=== PATIENT | female | born 1930 | race Caucasian/White ===

== ENCOUNTER 2018-04-12 10:02 | Emergency (ER) | payer MEDICARE ==
[2018-04-12] MEDS ORDERED: ASPIRIN 81 MG CHEWABLE TABLET PO ONE (10:18)
--- NOTE | 2018-04-12 10:28 | Emergency Department Record ---
History of Present Illness - General Chief complaint: Weakness Stated complaint: FELL COUPLE DAYS Time Seen by Provider: 04/12/18 10:09 Source: Patient, RN notes reviewed Mode of Arrival: Wheelchair - History of Present Illness Initial comments: patient fell out of a chair today and EMS helped her get off the floor and daughter brought her to the ED. She has a older injury of her right big toe and her toenail is almost off and it is very ecchymotic especially around the toenail. Patient's feet are red . No trauma to head or neck and no pain moving arms and legs. patient states she has a chest pain which has been occurring for 4-5 months and is present today. Onset/Timin -: Week(s) Location: Generalized Consistency: Intermittent Improves with: None Worsens with: None Associated Symptoms: Denies other symptoms - Related Data Home Medications Medication Instructions Recorded Confirmed Last Taken Diclofenac Sodium [Voltaren] 100 gm TP TID 04/12/18 04/12/18 Unknown Gabapentin [Neurontin] 300 mg PO Q8H 04/12/18 04/12/18 Unknown Gabapentin [Neurontin] 600 mg PO QHS 04/12/18 04/12/18 Unknown [place]-3 Acid Ethyl Esters [Lovaza] 1 gm PO BID 04/12/18 04/12/18 Unknown Previous Rx's Medication Instructions Recorded Aspirin Chewable 325 mg PO DAILY #0 05/04/14 Metoprolol Tartrate [Lopressor] 50 mg PO BID #60 tablet 05/04/14 Cephalexin [Keflex] 500 mg PO QID #40 cap 04/12/18 Mupirocin Calcium [Bactroban] 1 applic TP BID #30 gm 04/12/18 Sulfamethoxazole/Trimethoprim 1 each PO BID #20 tablet 04/12/18 [Bactrim Ds Tablet] Allergies Allergy/AdvReac Type Severity Reaction Status Date / Time meperidine Allergy Unknown HYPERSENSIT Verified 04/12/18 10:29 [facility] Travel Screening - Travel/Exposure Within Last 30 Days Have you traveled within the last 30 days?: No Review of Systems Reviewed: No additional complaints except as noted below Constitutional: Reports: As per HPI. Denies: Chills, Fever, Malaise, Night sweats, Weakness, Weight change Eyes: Reports: As per HPI. Denies: Eye discharge, Eye pain, Photophobia, Vision change ENT: Reports: As per HPI. Denies: Congestion, Dental pain, Ear pain, Epistaxis , Hearing loss, Throat pain Respiratory: Reports: As per HPI. Denies: Cough, Dyspnea, Hemoptysis, Stridor, Wheezes Cardiovascular: Reports: As per HPI. Denies: Arrhythmia, Chest pain, Dyspnea on exertion, Edema, Murmurs, Orthopnea, Palpitations, Paroxysmal nocturnal dyspnea, Rheumatic Fever, Syncope Endocrine: Reports: As per HPI. Denies: Fatigue, Heat or cold intolerance, Polydipsia, Polyuria Gastrointestinal: Reports: As per HPI. Denies: Abdominal pain, Constipation, Diarrhea, Hematemesis, Hematochezia, Melena, Nausea, Vomiting Genitourinary: Reports: As per HPI. Denies: Abnormal menses, Discharge, Dyspareunia, Dysuria, Frequency, Hematuria, Incontinence, Retention, Urgency Musculoskeletal: Reports: As per HPI. Denies: Arthralgia, Back pain, Gout, Joint swelling, Myalgia, Neck pain Skin: Reports: As per HPI, Bruising (right great toe), Change in color, Other ( redness in both feet). Denies: Change in hair/nails, Lesions, Pruritus, Rash Neurological: Reports: As per HPI. Denies: Abnormal gait, Confusion, Headache, Numbness, Paresthesias, Seizure, Tingling, Tremors, Vertigo, Weakness Psychiatric: Reports: As per HPI. Denies: Anxiety, Auditory hallucinations, Depression, Homicidal thoughts, Suicidal thoughts, Visual hallucinations Hematological/Lymphatic: Reports: As per HPI. Denies: Anemia, Blood Clots, Easy bleeding, Easy bruising, Swollen glands Past Medical History - SOCIAL HISTORY Smoking Status: Never smoker - RESPIRATORY Hx Respiratory Disorders: No - CARDIOVASCULAR Hx Cardio Disorders: Yes Hx Hypertension: Yes Comment:: high cholesterol - NEURO Hx Neuro Disorders: Yes Hx Neuropathy: Yes (FINGERS) - GI Hx GI Disorders: Yes Hx Hepatitis/Jaundice: Yes (19 YEARS AGO) - Hx Genitourinary Disorders: Yes Comment:: STRESS INCONTINENCE - ENDOCRINE Hx Endocrine Disorders: Yes Hx Thyroid Disease: Yes - MUSCULOSKELETAL Hx Musculoskeletal Disorders: Yes Hx Arthritis: Yes Hx Osteoporosis: Yes ("SEVERE") Comment:: BACK PAIN - PSYCH Hx Psych Problems: Yes Hx Depression: Yes - HEMATOLOGY/ONCOLOGY Hx Hematology/Oncology Disorders: No Family Medical History Any Significant Family History?: Yes Hx Diabetes: Mother Physical Exam - General General Appearance: Alert, Oriented x3, Cooperative, No acute distress - Head Head exam: Normal inspection - Eye Eye exam: Normal appearance, PERRL Pupils: Normal accommodation - ENT ENT exam: Normal exam, Mucous membranes moist, Normal external ear exam, Normal orophraynx, TM's normal bilaterally Ear exam: Normal external inspection. negative: External canal tenderness Nasal Exam: Normal inspection. negative: Discharge, Sinus tenderness Mouth exam: Normal external inspection, Tongue normal Teeth exam: Normal inspection. negative: Dental caries Throat exam: Normal inspection. negative: Tonsillar erythema, Tonsillar exudate - Neck Neck exam: Normal inspection, Full ROM. negative: Tenderness - Respiratory Respiratory exam: Normal lung sounds bilaterally. negative: Respiratory distress - Cardiovascular Cardiovascular Exam: Regular rate, Normal rhythm, Normal heart sounds - GI/Abdominal GI/Abdominal exam: Soft, Normal bowel sounds. negative: Tenderness - Rectal Rectal exam: Other (decubitus in the crease of buttock about the size of a quarter.) - exam: Deferred - Extremities Extremities exam: Full ROM, Normal capillary refill, Tenderness (right great toe ecchymotic, both feet red), Other (pulses are present in feet but are faint. ) - Back Back exam: Reports: Normal inspection, Full ROM. Denies: Muscle spasm, Rash noted, Tenderness - Neurological Neurological exam: Alert, Normal gait, Oriented X3, Reflexes normal - Psychiatric Psychiatric exam: Normal affect, Normal mood - Skin Skin exam: Dry, Intact, Normal color, Warm Course Vital Signs 04/12/18 10:06 Temperature 99.0 F Pulse Rate 78 Respiratory 20 Rate Blood Pressure 142/82 Pulse Ox 94 L Medical Decision Making - Data Complexity MDM Data: Labs Ordered and/or Reviewed (d dimer elevated 0.92), X-Ray Ordered and/or Reviewed (CTA negative for a PE), EKG Ordered and/or Reviewed (NSR ,No acut changes and RBBB with PVc's) - Lab Data Result diagrams: 04/12/18 10:15 04/12/18 10:15 Disposition Clinical Impression: Cellulitis Qualifiers: Site of cellulitis: extremity Site of cellulitis of extremity: lower extremity Laterality: right Qualified Code(s): L03.115 - Cellulitis of right lower limb Decubitus skin ulcer Qualifiers: Pressure injury location: buttock Pressure injury stage: stage 2 Laterality: unspecified laterality Qualified Code(s): L89.302 - Pressure ulcer of unspecified buttock, stage 2 Condition: (1) Good Instructions: Cellulitis (ED), How to Prevent Pressure Ulcers (ED) Additional Instructions: wash buttock daily and apply bactoban ointment twice a day elevate legs follow up with Dr. Garcia on tuesday start bactrim Ds twice a day keflex four times a day Prescriptions: Cephalexin [Keflex] 500 mg PO QID #40 cap Mupirocin Calcium [Bactroban] 1 applic TP BID #30 gm Sulfamethoxazole/Trimethoprim [Bactrim Ds Tablet] 1 each PO BID #20 tablet Forms: Patient Portal Access Time of Disposition: 13:03 Quality - Quality Measures Quality Measures: N/A - Blood Pressure Screening Does Patient Have Any of the Following: No, Active Dx of HTN Blood Pressure Classification: Pre-Hypertensive BP Reading Systolic Measurement: 142 Diastolic Measurement: 82 Screening for High Blood Pressure: Patient Exclusion, Hx of HTN [G9744]
[2018-04-12 10:34] LABS: BASO % 0.5 % (0-6); EOS % 4.3 % (0-6); GRAN % 61.6 % (47-80); HEMATOCRIT 40.2 % (35.0-47.0); HEMOGLOBIN 12.9 gm/dl (11.6-16.0); LYMPH % 23.7 % (16-45); MEAN CELL VOLUME 98.3 fl (81-97); MEAN CORPUSCULAR HEMOGLOBIN 31.5 pg (27-33); MEAN CORPUSCULAR HGB CONC 32.1 g/dl (32-36); MEAN PLATELET VOLUME 9.7 fl (7.4-10.4); MONO % 9.9 % (0-9); PLATELET COUNT 265 K/uL (130-400); RED BLOOD COUNT 4.09 M/uL (3.80-5.40); RED CELL DISTRIBUTION WIDTH 12.3 % (11.5-14.5); WHITE BLOOD COUNT W/O DIFF 7.5 K/uL (4.2-12.2)
[2018-04-12 10:39] LABS: BLOOD UREA NITROGEN 33 mg/dL (8-23); CREATININE 0.6 mg/dL (0.5-0.9); EST GLOMERULAR FILTRATION RATE > 60 mL/min
[2018-04-12 10:42] LABS: GLUCOSE,RANDOM 126 mg/dL (74-109)
[2018-04-12 10:43] LABS: PARTIAL THROMBOPLASTIN TIME 30.1 SECONDS (24.5-39.1)
--- NOTE | 2018-04-14 10:46 | CT ANGIOGRAM REPORT ---
EXAM: CT ANGIOGRAM OF THE CHEST HISTORY: FALL, RIGHT LOWER RIB PAIN, ELEVATED D-DIMER. TECHNIQUE: CT pulmonary angiogram of the chest was obtained. Approximately 70 ml of Omnipaque 350 were administered intravenously. Maximum intensity projection images were reconstructed on a separate workstation. Comparison: Chest radiograph 05/02/14. FINDINGS: Adequate opacification of the pulmonary arterial system to the segmental level. No filling defects are identified to suggest pulmonary embolism. The main pulmonary artery appears nondilated. The thoracic aorta is nondilated and mildly calcified. Coarse coronary artery calcifications are noted. No significant pericardial fluid collection. Multiple slightly prominent mediastinal and bilateral hilar lymph nodes. The largest discreet lymph node within the aortopulmonary window measures up to 12 mm in short axis. No focal pulmonary consolidation. No pleural effusion or pneumothorax. Mild bilateral lower lobe subsegmental atelectasis. The central airways appear patent. Small hiatal hernia. Right renal cortical cyst. No definite acute displaced fractures are identified. 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 Diffuse degenerative changes of the thoracic spine and visualized cervical and lumbar spine, incompletely assessed. IMPRESSION: 1. NO EVIDENCE OF ACUTE PULMONARY EMBOLISM OR OTHER ACUTE INTRATHORACIC PROCESS. 2. BORDERLINE ENLARGED MEDIASTINAL AND HILAR LYMPH NODES, NONSPECIFIC, POSSIBLY REACTIVE. 3. NO DEFINITE ACUTE FRACTURE DETECTED. ADVANCED DEGENERATIVE CHANGES OF THE SPINE AND BILATERAL SHOULDERS. JOB NUMBER: [id number] [facility]
--- NOTE | 2018-04-14 13:45 | RADIOLOGY REPORT ---
EXAM: RIGHT FOOT, THREE VIEWS HISTORY: FALL, RIGHT FOOT PAIN. TECHNIQUE: Three views of the right foot were obtained. Comparison: No relevant comparison studies. FINDINGS: No definite acute fracture or dislocation identified. 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 Marked lateral deviation of the proximal phalanges at the level of the metatarsal phalangeal joints, with possible underlying osteoarthrosis. Prominent calcaneal Achilles insertional end plantar enthesophytes. IMPRESSION: 1. NO DEFINITE ACUTE OSSEOUS FINDINGS. 2. CHRONIC DEGENERATIVE CHANGES OF THE ANKLE AND FOOT, ABOVE. JOB NUMBER: [id number] [facility]
== END 2018-04-12 13:23 | disposition home or self-care (01) ==
LOC: ER 10:02
DX: S90.111A Contusion of right great toe without damage to nail, initial encounter (principal); L03.115 Cellulitis of right lower limb; L03.031 Cellulitis of right toe; L89.322 Pressure ulcer of left buttock, stage 2; L89.312 Pressure ulcer of right buttock, stage 2; R07.89 Other chest pain; R79.89 Other specified abnormal findings of blood chemistry; M47.894 Other spondylosis, thoracic region; Z91.81 History of falling; W07.XXXA Fall from chair, initial encounter; I10 Essential (primary) hypertension
CPT/HCPCS: 99284 ×2; 85025; 85730; 80048; 84484; 85379; 73630; 71275; 93005; 93010; Q9967

== ENCOUNTER 2018-04-29 15:08 | Emergency (ER) | payer MEDICARE ==
--- NOTE | 2018-04-29 15:25 | Emergency Department Record ---
History of Present Illness - General Chief complaint: Lower Extremity Pain Stated complaint: PAIN IN LOWER LEG Time Seen by Provider: 04/29/18 15:09 Source: Patient, Family Mode of Arrival: Wheelchair Limitations: No limitations - History of Present Illness Initial comments: 87 yo female presents with bilateral calf pain for two weeks. The right calf today became more painful than that left. She notes a sharp pain in the posterior area. She has had anterior spivey pain as well. She has had swelling that has fluctuated. She has been seen recently by the PCP locally for a right toe infection. That area is improving. The calf pain today concerned them that blood clots could be possible given the location of the pain, her swelling , and less active. No history of prior DVT. MD Complaint: Other (Bilateral calf pain, right greater than left) Onset/Timin -: Week(s) Location: Left, Right History of Same: Yes -: Yes Arthralgia, Yes Myalgia Radiation: Proximal, Distal Severity scale (1-10): 4 Quality: Aching Consistency: Constant Improves with: Nothing Worsens with: Walking, Weight bearing Associated Symptoms: Denies other symptoms - Related Data Previous Rx's Medication Instructions Recorded Aspirin Chewable 325 mg PO DAILY #0 05/04/14 Metoprolol Tartrate [Lopressor] 50 mg PO BID #60 tablet 05/04/14 Cephalexin [Keflex] 500 mg PO QID #40 cap 04/12/18 Mupirocin Calcium [Bactroban] 1 applic TP BID #30 gm 04/12/18 Allergies Allergy/AdvReac Type Severity Reaction Status Date / Time meperidine Allergy Unknown HYPERSENSIT Verified 04/29/18 15:15 [facility] Travel Screening - Travel/Exposure Within Last 30 Days Have you traveled within the last 30 days?: No Review of Systems Constitutional: Denies: Chills, Fever, Weakness Eyes: Denies: Eye discharge ENT: Denies: Congestion, Throat pain Respiratory: Denies: Cough, Dyspnea Cardiovascular: Denies: Chest pain, Palpitations, Syncope Endocrine: Denies: Fatigue, Polydipsia, Polyuria Gastrointestinal: Denies: Abdominal pain, Diarrhea, Nausea, Vomiting Genitourinary: Denies: Hematuria Musculoskeletal: Reports: Arthralgia, Joint swelling, Myalgia Skin: Denies: Bruising, Change in color, Rash Neurological: Denies: Headache Psychiatric: Denies: Anxiety Hematological/Lymphatic: Denies: Blood Clots, Easy bleeding, Easy bruising Past Medical History - SOCIAL HISTORY Smoking Status: Never smoker Alcohol Use: None Drug Use: None - RESPIRATORY Hx Respiratory Disorders: No - CARDIOVASCULAR Hx Cardio Disorders: Yes Hx Hypertension: Yes Comment:: high cholesterol - NEURO Hx Neuro Disorders: Yes Hx Neuropathy: Yes (FINGERS) - GI Hx GI Disorders: Yes Hx Hepatitis/Jaundice: Yes (19 YEARS AGO) - Hx Genitourinary Disorders: Yes Comment:: STRESS INCONTINENCE - ENDOCRINE Hx Endocrine Disorders: Yes Hx Thyroid Disease: Yes - MUSCULOSKELETAL Hx Musculoskeletal Disorders: Yes Hx Arthritis: Yes Hx Osteoporosis: Yes ("SEVERE") Comment:: BACK PAIN - PSYCH Hx Psych Problems: Yes Hx Depression: Yes - HEMATOLOGY/ONCOLOGY Hx Hematology/Oncology Disorders: No Family Medical History Any Significant Family History?: Yes Hx Diabetes: Mother Physical Exam - General General Appearance: Alert, Oriented x3, Cooperative, No acute distress Limitations: No limitations - Head Head exam: Normal inspection - Eye Eye exam: Normal appearance. negative: Conjunctival injection - ENT ENT exam: Normal exam Ear exam: Normal external inspection Nasal Exam: Normal inspection Mouth exam: Normal external inspection - Neck Neck exam: Normal inspection - Respiratory Respiratory exam: Normal lung sounds bilaterally. negative: Respiratory distress - Cardiovascular Cardiovascular Exam: Regular rate, Normal rhythm, Normal heart sounds Peripheral Pulses: 2+: Dorsalis Pedis (R), Dorsalis Pedis (L) - GI/Abdominal GI/Abdominal exam: Soft. negative: Tenderness - Rectal Rectal exam: Deferred - exam: Deferred - Extremities Extremities exam: Calf tenderness, Normal capillary refill, Pedal edema (The patient has bilateral feet erythema, avulsed right great toe, no pus. Intact DP pulses, bilateral calf tenderness. RIGHT measured a max of 46cm the LEFT measured a max of 49.5cm.), Tenderness, Other. negative: Normal inspection - Back Back exam: Reports: Full ROM - Neurological Neurological exam: Alert, Oriented X3 - Psychiatric Psychiatric exam: Normal affect, Normal mood - Skin Skin exam: Erythema Course Vital Signs 04/29/18 15:15 Temperature 97.8 F Pulse Rate 65 Respiratory 20 Rate Blood Pressure 114/65 Pulse Ox 98 - Reevaluation(s) Reevaluation #1: I discussed with the patient that DVT was possible given her recent treatment, less mobile, pain, swelling and calf size differences. I explained [facility] does not have US testing on the weekend I recommend transfer for dopplers as DVT can be a serious medical issue She and her daughter agreed. I SW the [facility] ED for transfer for evaluation for dopplers. Dr Jasso 04/29/18 15:27 04/29/18 15:34 She is asymptomatic with normal vitals. She is stable for private car transport Disposition Disposition: Transfer Clinical Impression: Bilateral calf pain Disposition: Acute Care Hospital Transfer Transfer To: [facility] Reason For Transfer: Venous Dopplers not available Accepting Physician: Dr Jose Jasso Time Discussed w/Accepting Physician: 15:34 Condition: (1) Good Forms: Patient Portal Access Time of Disposition: 15:34 Quality - Quality Measures Quality Measures: N/A - Blood Pressure Screening Does Patient Have Any of the Following: No Blood Pressure Classification: Normal BP Reading Systolic Measurement: 114 Diastolic Measurement: 65 Screening for High Blood Pressure: < Normal BP, F/U Not Required > [G8783]
== END 2018-04-29 15:48 | disposition short-term general hospital (02) ==
LOC: ER 15:08
DX: M79.662 Pain in left lower leg (principal); M79.661 Pain in right lower leg; I10 Essential (primary) hypertension
CPT/HCPCS: 99283

== ENCOUNTER 2018-05-13 11:06 | Inpatient (IN) | payer MEDICARE ==
--- NOTE | 2018-05-13 11:28 | Emergency Department Record ---
History of Present Illness - General Chief Complaint: Fall Injury Stated Complaint: FALLS Source: Patient, Family Mode of Arrival: Wheelchair Limitations: No limitations - History of Present Illness Initial Comments: 87 yo female presents with weakness and multiple falls. She has fallen at least 5 times in the last month. The local EMS has had to come to the home to get her up each time per the daughter. The patient states she thinks her legs give out. No head injury. She denies syncope. She feels tired and weak with some new swelling in her legs with redness. No nausea, vomiting or diarrhea. She does live alone with a life alert. Her daughter reports she is investigating assisted living but she has not made any firm plans yet. Dr Garcia is her PCP. MD Complaint: Fall -: Week(s) Fall From: Standing When Fall Occurred: Recurrent falls Fall Witnessed: No Place Fall Occurred: Home Loss of Consciousness: None Prolonged Down Time?: Yes Symptoms Prior to Fall: None Location: Other Severity: Moderate Quality: Aching Associated Symptoms: Denies - [place] Coma Scale Eye Response: (4) Open spontaneously Motor Response: (6) Obeys commands Verbal Response: (5) Oriented [place] Total: 15 - Related Data Previous Rx's Medication Instructions Recorded Aspirin Chewable 325 mg PO DAILY #0 05/04/14 Metoprolol Tartrate [Lopressor] 50 mg PO BID #60 tablet 05/04/14 Allergies Allergy/AdvReac Type Severity Reaction Status Date / Time meperidine Allergy Unknown HYPERSENSIT Verified 05/13/18 11:15 IVITY Review of Systems Constitutional: Reports: Malaise, Weakness. Denies: Chills, Fever Eyes: Denies: Eye discharge ENT: Denies: Congestion, Throat pain Respiratory: Denies: Cough, Dyspnea, Hemoptysis, Stridor, Wheezes Cardiovascular: Reports: Edema. Denies: Chest pain, Palpitations, Syncope Endocrine: Reports: Fatigue Gastrointestinal: Denies: Abdominal pain, Diarrhea, Nausea, Vomiting Genitourinary: Denies: Dysuria, Urgency Musculoskeletal: Reports: Arthralgia, Back pain. Denies: Myalgia Skin: Reports: Change in color, Rash. Denies: Bruising Neurological: Reports: Abnormal gait (Unable due to weakness), Weakness. Denies : Confusion, Headache, Numbness, Tingling, Tremors, Vertigo Psychiatric: Denies: Anxiety Hematological/Lymphatic: Denies: Easy bleeding, Easy bruising Past Medical History - SOCIAL HISTORY Smoking Status: Never smoker Drug Use: None - RESPIRATORY Hx Respiratory Disorders: No - CARDIOVASCULAR Hx Cardio Disorders: Yes Hx Hypertension: Yes Comment:: high cholesterol - NEURO Hx Neuro Disorders: Yes Hx Neuropathy: Yes (FINGERS) - GI Hx GI Disorders: Yes Hx Hepatitis/Jaundice: Yes (19 YEARS AGO) - Hx Genitourinary Disorders: Yes Comment:: STRESS INCONTINENCE - ENDOCRINE Hx Endocrine Disorders: Yes Hx Thyroid Disease: Yes - MUSCULOSKELETAL Hx Musculoskeletal Disorders: Yes Hx Arthritis: Yes Hx Osteoporosis: Yes ("SEVERE") Comment:: BACK PAIN - PSYCH Hx Psych Problems: Yes Hx Depression: Yes - HEMATOLOGY/ONCOLOGY Hx Hematology/Oncology Disorders: No Family Medical History Hx Diabetes: Mother Physical Exam - General General Appearance: Alert, Oriented x3, Cooperative, No acute distress Limitations: No limitations - Head Head exam: Atraumatic, Normocephalic, Normal inspection - Eye Eye exam: Normal appearance, PERRL. negative: Conjunctival injection, Scleral icterus - ENT ENT exam: Normal exam, Mucous membranes moist, Normal orophraynx Ear exam: Normal external inspection Nasal Exam: Normal inspection Mouth exam: Normal external inspection - Neck Neck exam: Normal inspection, Full ROM. negative: Tenderness - Respiratory Respiratory exam: Normal lung sounds bilaterally. negative: Respiratory distress, Rhonchi, Stridor, Wheezes - Cardiovascular Cardiovascular Exam: Regular rate, Normal rhythm, Normal heart sounds Peripheral Pulses: 2+: Radial (R), Radial (L) - GI/Abdominal GI/Abdominal exam: Soft. negative: Guarding, Tenderness - Rectal Rectal exam: Deferred - exam: Deferred - Extremities Extremities exam: Normal capillary refill, Pedal edema (erythema bilateral lower legs), Tenderness. negative: Normal inspection - Back Back exam: Reports: Paraspinal tenderness, Tenderness, Vertebral tenderness ( chronic). Denies: Normal inspection (Bruising to the right lower ribs) - Neurological Neurological exam: Abnormal gait, Alert, Oriented X3. negative: Altered, Motor sensory deficit - Psychiatric Psychiatric exam: Normal affect, Normal mood - Skin Skin exam: Erythema Course - Reevaluation(s) Reevaluation #1: EKG EKG #1: 1124 Rate: 65 Rhythm: sinus with PVC Buckley: leftward Intervals: RBBB ST segments: Nonspecific changes consistent with RBBB Prior: 8/1/18 no changes 05/13/18 11:32 05/13/18 13:16 The HCT was reviewed. Remote prior stroke. NO acute findings The CXR was negative for acute process The CBC and CMP were reviewed. No significant major changes The Troponin is negative The patient requires two person lift for transferring. She is a significant fall risk. Admit for cellutitis,falls, deconditioning. Ariane Wellington was contacted for admission to the Family Medicine Service. 05/13/18 13:58 The UA is negative Medical Decision Making - Lab Data Result diagrams: 05/13/18 11:30 05/13/18 11:30 Disposition Clinical Impression: Falls frequently, Physical deconditioning, Cellulitis, Edema extremities Quality - Quality Measures Quality Measures: N/A - Blood Pressure Screening Does Patient Have Any of the Following: Active Dx of HTN Blood Pressure Classification: Pre-Hypertensive BP Reading Systolic Measurement: 137 Diastolic Measurement: 60 Screening for High Blood Pressure: Patient Exclusion, Hx of HTN [G9744]
[2018-05-13 11:43] LABS: BASO % 0.8 % (0-6); EOS % 5.8 % (0-6); GRAN % 56.5 % (47-80); HEMATOCRIT 39.7 % (35.0-47.0); HEMOGLOBIN 12.7 gm/dl (11.6-16.0); LYMPH % 25.6 % (16-45); MEAN CELL VOLUME 98.3 fl (81-97); MEAN CORPUSCULAR HEMOGLOBIN 31.4 pg (27-33); MEAN PLATELET VOLUME 9.5 fl (7.4-10.4); MONO % 11.3 % (0-9); PLATELET COUNT 254 K/uL (130-400); RED BLOOD COUNT 4.04 M/uL (3.80-5.40); RED CELL DISTRIBUTION WIDTH 12.6 % (11.5-14.5); WHITE BLOOD COUNT W/O DIFF 6.4 K/uL (4.2-12.2)
[2018-05-13 11:49] LABS: INR 1.1; PARTIAL THROMBOPLASTIN TIME 30.9 SECONDS (24.5-39.1); PROTHROMBIN TIME (PATIENT) 10.7 SECONDS (9.5-12.1)
[2018-05-13 11:51] LABS: BLOOD UREA NITROGEN 31 mg/dL (8-23); CREATININE 0.8 mg/dL (0.5-0.9); EST GLOMERULAR FILTRATION RATE > 60 mL/min
[2018-05-13 11:52] LABS: TOTAL PROTEIN 6.9 g/dL (6.6-8.7)
[2018-05-13 11:54] LABS: GLUCOSE,RANDOM 112 mg/dL (74-109)
[2018-05-13 11:56] LABS: ALT/SGPT 17 U/L (<33)
[2018-05-13 11:57] LABS: ALB/GLOB RATIO 1.7 (1.1-1.8); ALBUMIN 4.3 g/dL (4.0-5.0); ALKALINE PHOSPHATASE 63 U/L (35-104); AST/SGOT 19 U/L (10.0-35.0)
[2018-05-13 12:07] LABS: THYROID STIMULATING HORMONE 1.41 uIU/mL (0.270-4.20)
[2018-05-13] MEDS ORDERED: CEFAZOLIN 1 Gram 1 GM/50 ML BAG IVPB ONE (13:21)
[2018-05-13 13:34] LABS: URINE APPEARANCE CLEAR; URINE BILIRUBIN NEGATIVE (NEGATIVE); URINE BLOOD NEGATIVE (NEGATIVE); URINE COLOR YELLOW; URINE GLUCOSE (UA) NEGATIVE (NEGATIVE); URINE KETONE NEGATIVE (NEGATIVE); URINE LEUKOCYTE ESTERASE NEGATIVE (NEGATIVE); URINE NITRITE NEGATIVE (NEGATIVE); URINE PROTEIN NEGATIVE (NEGATIVE); URINE UROBILINOGEN 0.2 E.U./dL (0.20 - 1.00)
[2018-05-13] MEDS: CEFAZOLIN IVPB SCH ×2 (15:22→23:44)
[2018-05-13] MEDS: SODIUM CHLORIDE 0.9% IVPB SCH ×2 (15:22→23:44)
[2018-05-13] MEDS ORDERED: ZINC OXIDE TOP PRN (16:00)
[2018-05-13] MEDS ORDERED: MENTHOL TOP PRN (16:00)
[2018-05-13] MEDS: GABAPENTIN 300 MG CAPSULE PO SCH ×3 (16:03→22:04)
[2018-05-13] MEDS: METOPROLOL TART 50 MG TABLET PO SCH (21:59)
[2018-05-13] MEDS: ROPINIROLE HCL 1 MG TABLET PO SCH (22:00)
[2018-05-14] MEDS: CEFAZOLIN 1G VIAL IVPB SCH ×3 (00:16→15:03)
[2018-05-14] MEDS: GABAPENTIN 300 MG CAPSULE PO SCH ×4 (06:14→21:40)
[2018-05-14] MEDS: LEVOTHYROXINE SODIUM 175 MCG TABLET PO SCH (06:14)
[2018-05-14 06:26] LABS: BASO % 0.6 % (0-6); EOS % 2.8 % (0-6); GRAN % 65.4 % (47-80); HEMATOCRIT 37.3 % (35.0-47.0); HEMOGLOBIN 11.6 gm/dl (11.6-16.0); LYMPH % 19.5 % (16-45); MEAN CORPUSCULAR HGB CONC 31.1 g/dl (32-36); MEAN PLATELET VOLUME 9.9 fl (7.4-10.4); MONO % 11.7 % (0-9); PLATELET COUNT 229 K/uL (130-400); RED BLOOD COUNT 3.73 M/uL (3.80-5.40); RED CELL DISTRIBUTION WIDTH 12.8 % (11.5-14.5); WHITE BLOOD COUNT W/O DIFF 7.1 K/uL (4.2-12.2)
[2018-05-14 06:45] LABS: ALB/GLOB RATIO 1.7 (1.1-1.8); ALBUMIN 3.8 g/dL (4.0-5.0); ALKALINE PHOSPHATASE 54 U/L (35-104); ALT/SGPT 11 U/L (<33); AST/SGOT 18 U/L (10.0-35.0); BLOOD UREA NITROGEN 27 mg/dL (8-23); CREATININE 0.6 mg/dL (0.5-0.9); EST GLOMERULAR FILTRATION RATE > 60 mL/min; GLUCOSE,RANDOM 125 mg/dL (74-109); TOTAL PROTEIN 6.1 g/dL (6.6-8.7)
[2018-05-14] MEDS: ASPIRIN 81 MG CHEWABLE TABLET PO SCH (09:59)
[2018-05-14] MEDS: ENOXAPARIN 40 MG/0.4 ML SYR SQ SCH (09:59)
[2018-05-14] MEDS: METOPROLOL TART 50 MG TABLET PO SCH ×2 (09:59→21:40)
[2018-05-14] MEDS: ACETAMINOPHEN 325 MG TAB PO PRN ×2 (10:26→16:22)
[2018-05-14] MEDS: ROPINIROLE HCL 1 MG TABLET PO SCH (21:40)
[2018-05-15] MEDS: CEFAZOLIN 1G VIAL IVPB SCH ×4 (00:29→23:42)
[2018-05-15] MEDS: LEVOTHYROXINE SODIUM 175 MCG TABLET PO SCH (07:03)
[2018-05-15] MEDS: GABAPENTIN 300 MG CAPSULE PO SCH ×4 (07:03→21:27)
[2018-05-15] MEDS: ENOXAPARIN 40 MG/0.4 ML SYR SQ SCH (09:38)
[2018-05-15] MEDS: ASPIRIN 81 MG CHEWABLE TABLET PO SCH (09:39)
[2018-05-15] MEDS: METOPROLOL TART 50 MG TABLET PO SCH ×2 (09:41→21:27)
[2018-05-15] MEDS: ACETAMINOPHEN 325 MG TAB PO PRN ×2 (12:12→21:24)
[2018-05-15] MEDS: ROPINIROLE HCL 1 MG TABLET PO SCH (21:27)
[2018-05-16] MEDS: LEVOTHYROXINE SODIUM 175 MCG TABLET PO SCH (06:42)
[2018-05-16] MEDS: GABAPENTIN 300 MG CAPSULE PO SCH ×4 (06:42→22:48)
[2018-05-16] MEDS: ACETAMINOPHEN 325 MG TAB PO PRN ×2 (06:43→20:01)
--- NOTE | 2018-05-16 07:11 | CT SCAN REPORT ---
EXAM: CT SCAN OF THE BRAIN WITHOUT CONTRAST HISTORY: MULTIPLE RECENT FALLS. TECHNIQUE: Standard CT imaging of the brain was performed in the axial plane without contrast. Additional coronal and sagittal reformatted images were also performed. Comparison: None. Encounter: Initial. FINDINGS: There is moderate generalized atrophy. The ventricles and subarachnoid spaces are otherwise normal. Moderate chronic small vessel ischemic changes are present within the periventricular and subcortical white matter of both cerebral hemispheres. A small old infarct is present within the posterior left frontal lobe superiorly. There is no mass, mass effect, intracranial hemorrhage, visible acute infarct, or abnormal extraaxial fluid. The skull is intact. The orbits, sinuses, and mastoids are normal. IMPRESSION: 1. NO ACUTE INTRACRANIAL ABNORMALITY OR SKULL FRACTURE. 2. MODERATE ATROPHY AND CHRONIC SMALL VESSEL ISCHEMIC CHANGES. 3. 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 J[facility]BER: [id number] [facility]
--- NOTE | 2018-05-16 07:14 | RADIOLOGY REPORT ---
EXAM: CHEST, TWO VIEWS HISTORY: MULTIPLE RECENT FALLS. TECHNIQUE: AP and lateral upright views of the chest were obtained. Comparison: 05/02/14. FINDINGS: There are low lung volumes. The heart is upper normal in size. The mediastinum and pulmonary vasculature are normal. There are no visible acute infiltrates or effusions. There is no pneumothorax. Degenerative changes are present within the spine and shoulders. No acute osseous abnormality is identified. IMPRESSION: 1. LOW LUNG VOLUMES. 2. NO ACUTE CHEST PATHOLOGY IDENTIFIED. JOB NUMBER: [id number] [facility]
--- NOTE | 2018-05-16 07:15 | History and Physical Report ---
DATE OF SERVICE: 05/14/2018. CHIEF COMPLAINT/HISTORY OF CHIEF COMPLAINT: Bilateral redness of her legs, frequent falls, weakness. She has had 5 falls in the last month. She came to the emergency department. Evaluated by Dr. Evans. Admitted to the hospital for cellulitis, edema of her lower extremities, frequent falls, physical deconditioning. She was initially put in under Ariane, the nurse practitioner, and I saw her on 05/14/2018. She states her legs were sore and red bilaterally. She had fallen down. She was brought in by her daughter to the emergency department, and her legs are starting to feel a little better, according to the patient. She said the left leg was more painful than the right leg. MEDICAL HISTORY: She has hypertension, hypercholesterolemia, neuropathy of the legs and feet and hands; 19 years ago she had hepatitis. She is incontinent of urine. 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 CURRENT MEDICATIONS: On admission: 1. Tramadol 100 mg t.i.d. 2. Requip 1 mg at h.s. 3. Metoprolol tartrate 50 mg b.i.d. 4. Losartan 50 mg daily. 5. Levothyroxine 175 mcg q.daily. 6. Gabapentin 600 mg at h.s., 300 mg q.8 hours. 7. Voltaren 100 mg t.i.d. 8. Aspirin 325 daily. 9. Tylenol 325 p.r.n. ALLERGIES: DEMEROL. SOCIAL HISTORY: She denies any alcohol or drug use. FAMILY HISTORY: Unremarkable. SYSTEMS REVIEW: HEENT: No upper respiratory infections, symptoms of cough, cold, or congestion. CARDIOVASCULAR: No chest pain, palpitation, arrhythmias. RESPIRATORY: No cough, cold, or congestion. GASTROINTESTINAL: No nausea, vomiting, diarrhea, black stools, or bloody stools. GENITOURINARY: No dysuria, hematuria, frequency, or burning on urination. MUSCULOSKELETAL: She has pain in her low back and her joints. She also has pain in her legs that are red and slightly swollen and edematous, probably 1+-2+ edema. The left leg is more painful than the right leg. NEUROLOGIC: No CVA, paralysis, or paresthesias. ENDOCRINE: She has hypothyroidism. No diabetes. INTEGUMENTARY: No rash, ulcer, change in moles, or yellow skin. GYNECOLOGIC: She denies any lumps in her breasts or any abnormal vaginal bleeding. PHYSICAL EXAMINATION: VITAL SIGNS: Height is 5 foot 2. Weight is 212 pounds. Temperature is 99.3. Pulse is 86. Blood pressure 167/70. Respiratory rate is 18. Pulse ox 98% on room air. HEENT: Pupils equal, round, and react to light and accommodation. Extraocular muscles intact. Throat is clear. Nose is clear. Tympanic membranes are norris. NECK: Supple. No jugular venous distention or elevated hepatojugular reflux. No carotid bruits. Thyroid smooth. RESPIRATORY: Clear to auscultation and percussion. CARDIOVASCULAR: Regular rate and rhythm without murmurs, clicks, rubs, or gallops. ABDOMEN: Soft, nontender. No hepatosplenomegaly. No masses. No tenderness. Bowel sounds are active. No bruits. EXTREMITIES: No pitting edema. No cyanosis. No clubbing. Full range of motion. Peripheral pulses good. BREASTS: Deferred. GYNECOLOGIC: Exam deferred. RECTAL: Exam deferred. NEUROLOGIC: Cranial nerves II-XII intact. No gross defects. Deep tendon reflexes equal bilaterally. Babinskis negative. She is very weak when she gets out of bed, which is kind of her typical. Patient walking with a walker with 1 person holding her arm. MENTAL STATUS: Alert and oriented x3. IMPRESSION: 1. Cellulitis of both legs. 2. Weakness. 3. Frequent falls. 4. Degenerative joint disease of her low back and arthritis of her low back. 5. History of hypertension. 6. History of hypothyroidism. 7. History of frequent falls. PLAN: IV cephalexin 1 g q.6 hours. Physical therapy to evaluate and help with deconditioning. Inpatient certification. Admit to inpatient care based on the medical assessment and consideration of patient risk factors, age, comorbidities, and patient's presenting symptoms and acuity. I expect this patient will remain in the hospital greater than or equal to 2 midnights and that the services needed warrant inpatient care because of cellulitis of the legs. Estimated length of stay 3 days. Patient may reasonably be expected to be discharged or transferred to a hospital within 96 hours after admission to [facility]. I certify that my determination is in accordance with my understanding of Medicare requirements for reasonable and necessary inpatient services. ALEXANDRA
[2018-05-16] MEDS: CEFAZOLIN 1G VIAL IVPB SCH (08:22)
--- NOTE | 2018-05-16 10:19 | Rehab Evaluation ---
Patient Information - Patient Information Diagnosis: Cellulitis, weakness, falls, deconditioning Ordered Treatment: PT Evaluate and Treat Status: Initial Evaluation Surgery: No Past Medical/Surgical Hx: PAST MEDICAL/SURGICAL HISTORY Past Surgical History Total right knee 05/02/14 PMH - Respiratory Hx Respiratory Disorders No PMH - Cardiovascular Hx Cardiovascular Disorders Yes Hx Hypertension Yes Comment: high cholesterol PMH - Neuro Hx Neurological Disorders Yes Hx Neuropathy Yes: FINGERS PMH - GI Hx Gastrointestinal Disorders Yes Hx Hepatitis/Jaundice Yes: 19 YEARS AGO Comment: CONSTIPATION PMH - Hx Genitourinary Disorders Yes Comment: STRESS INCONTINENCE PMH - Endocrine Hx Endocrine Disorders Yes Hx Diabetes No Hx Thyroid Disease Yes PMH - Musculoskeletal Hx Musculoskeletal Disorders Yes Hx Arthritis Yes Hx Osteoporosis Yes: "SEVERE" Comment: BACK PAIN PMH - Psych Hx Psychiatric Problems Yes Hx Depression Yes PMH - Hematology/Oncology Hx Hematology/Oncology No Disorders Premorbid Status: Detail (Patient was currently IND with all mobility and ADL' s. Although she does report multiple falls recently.) Social History: Detail (Patient lives alone in a mobile home. She has a ramp to enter the home and no steps throughout. She has a tub with a shower bench and an elevated toilet. She currently uses a rollator at home and performs most ADL' s herself. She has help with cleaning and does not drive.) Precautions: [place], Fall - Time With Patient Total Time Spent With Patient (Min): 30 Treatment Procedures: Detail (Initial evaluation, gait training.) Subjective Information - Subjective Information Per Patient (Patient had no complaints of pain. Patient reports multiple falls in the last few months. Most recently she fell twice on 05/13, she remembered one fall that happened when she was folding laundry. Patient does not know why she keeps falling.) Objective Data - Pain Pain Present: No - Mental Status Patient Orientation: Oriented x3 - Visual Perception Appears within normal limits for therapeutic activities - ROM Within normal limits - Strength/Tone Not within normal limits (R hip flexion 3+/5, L hip flexion 3+/5, R hip ABD 4+/5 , L hip ABD 4+/5, R hip ADD 4+/5, L hip ADD 4+/5, R knee extension 4-/5, L knee extension 4/5, R knee flexion 4/5, L knee flexion 4/5, Bilateral ankle DF/PF 4+/ 5) - Bed Mobility Independent - Transfers Independent (Patient required CGA for safety.) - Balance Balance Sitting: Good Balance Standing: Poor - Sensation Deficit (Sensation was not formally assessed patient did report some numbness/ tingling in her fingers and toes.) - Gait Detail (Patient ambulated 70' using a front wheeled walker and CGA for safety. Patient required verbal cues on correct use of the walker.) Therapy Assessment - Therapy Assessment Detail (Patient tolerated activity well, she was IND with all mobility and transfers with CGA for safety. Standing balance was impaired with increased time , closed eyes, and perturbations. Feel patient would benefit from continued therpay to address balance impairments.) Problem List - Problem List Physical Therapy Problem List: Detail (1) Impaired balance/falls 2) Decreased B hip strength 3) Decreased activity tolerance) Goals - Goals Physical Therapy Goals: 1) Patient will stand with no support and minimal postural sway for 1 minute. 2) Patient will increase hip flexion muscle grade by 1/3 of a point. 3) Patient will tolerate ambulating 100' with a front wheeled walker and supervision for safety. 4) Evaluate patient using objective measure for balance. Prognosis - Prognosis Good Plan - Plan Physical Therapy Plan: Patient will be seen 1 time/day M-F to work on balance activities, LE strengthening exercises, and improve tolerance to physical activity.
[2018-05-16] MEDS: METOPROLOL TART 50 MG TABLET PO SCH ×2 (10:43→22:48)
[2018-05-16] MEDS: ASPIRIN 81 MG CHEWABLE TABLET PO SCH (10:43)
[2018-05-16] MEDS: ENOXAPARIN 40 MG/0.4 ML SYR SQ SCH (10:44)
--- NOTE | 2018-05-16 12:06 | Discharge Note ---
VTE H&P Assessment - Risk for VTE Risk for VTE: Yes Risk Level: Moderate Risk Assessment Date: 05/13/18 Risk Assessment Time: 20:00 VTE Orders Placed or Will Be Placed: Yes Discharge Medications - Discharge Medications Prescriptions: Cephalexin [Keflex] 500 mg PO Q6H #40 capsule Home Medications: Ambulatory Orders Acetaminophen [Tylenol 325Mg] 650 mg PO TID 04/24/14 [Last Taken 05/13/18] Levothyroxine Sodium 175 mcg PO DAILY 04/24/14 [Last Taken 05/13/18] Losartan Potassium [Cozaar] 50 mg PO DAILY 04/24/14 [Last Taken 05/13/18] Ropinirole HCl [Requip] 1 mg PO QHS 04/24/14 [Last Taken 05/13/18] Tramadol HCl 100 mg PO TID PRN 04/24/14 [Last Taken 05/13/18] Aspirin Chewable 325 mg PO DAILY #0 05/04/14 [Last Taken 05/13/18] Metoprolol Tartrate [Lopressor] 50 mg PO BID #60 tablet 05/04/14 [Last Taken 09/29] Diclofenac Sodium [Voltaren] 100 gm TP TID 04/12/18 [Last Taken 05/13/18] Gabapentin [Neurontin] 300 mg PO Q8H 04/12/18 [Last Taken 05/13/18] Gabapentin [Neurontin] 600 mg PO QHS 04/12/18 [Last Taken 05/13/18] Cephalexin [Keflex] 500 mg PO Q6H #40 capsule 05/16/18 [Last Taken Unknown] Discharge Note - Date Date of Discharge Note: 05/16/18 Disposition: Inpatient Rehab Facility Condition: (2) Stable Additional Instructions: follow up with Dr. Garcia after dicharge from rehab keflex 500 mg four times a day for 10 days Referrals: Tristin Garcia D.OChristopher [Primary Care Provider] - Forms: Patient Portal Access
--- NOTE | 2018-05-16 13:03 | Rehab Evaluation ---
Patient Information - Patient Information Diagnosis: Cellulitis, weakness, falls, deconditioning Ordered Treatment: OT Evaluate and Treat Status: Initial Evaluation Surgery: No Past Medical/Surgical Hx: PAST MEDICAL/SURGICAL HISTORY Past Surgical History Total right knee 05/02/14 PMH - Respiratory Hx Respiratory Disorders No PMH - Cardiovascular Hx Cardiovascular Disorders Yes Hx Hypertension Yes Comment: high cholesterol PMH - Neuro Hx Neurological Disorders Yes Hx Neuropathy Yes: FINGERS PMH - GI Hx Gastrointestinal Disorders Yes Hx Hepatitis/Jaundice Yes: 19 YEARS AGO Comment: CONSTIPATION PMH - Hx Genitourinary Disorders Yes Comment: STRESS INCONTINENCE PMH - Endocrine Hx Endocrine Disorders Yes Hx Diabetes No Hx Thyroid Disease Yes PMH - Musculoskeletal Hx Musculoskeletal Disorders Yes Hx Arthritis Yes Hx Osteoporosis Yes: "SEVERE" Comment: BACK PAIN PMH - Psych Hx Psychiatric Problems Yes Hx Depression Yes PMH - Hematology/Oncology Hx Hematology/Oncology No Disorders Premorbid Status: Detail (Patient was currently IND with all mobility and ADL' s. Although she does report multiple falls recently.) Social History: Detail (Patient lives alone in a mobile home. She has a ramp to enter the home and no steps throughout. She has a tub with a shower bench and an elevated toilet. She currently uses a rollator at home and performs most ADL' s and IADLS herself. She has help with cleaning 2 hours every other week and receives MOW. She does not drive.) Precautions: [place], Fall - Time With Patient Total Time Spent With Patient (Min): 35 Treatment Procedures: Detail (OT eval low complexity) Subjective Information - Subjective Information Per Patient Objective Data - Pain Pain Present: No - Mental Status Patient Orientation: Oriented x3 - Visual Perception Appears within normal limits for therapeutic activities (Pt wears glasses.) - ROM Within normal limits (Hussein UE AROM grossly WNL) - Strength/Tone Within normal limits (Hussein UE MMT 4/5) - Coordination Appears within normal limits for therapeutic activities - Bed Mobility Independent - Transfers Independent (Ind with sit to stand from EOB.) - Balance Balance Sitting: Good - Sensation Intact (Pt does report some numbness/tingling in fingertips.) - Gait Detail (Pt able to ambulate 50+ feet in hallway with 2 wheeled walker and CG assist.) - ADL's/IADL's Detail (Pt reports nursing is assisting with toileting as needed. She was able to demonstrate Ind with grooming/hygiene tasks while standing at sink.) Therapy Assessment - Therapy Assessment Detail (Pt presents with functional UE strength/ROM, Ind with grooming/hygiene and fair activity tolerance.) Problem List - Problem List Physical Therapy Problem List: Detail (1) Impaired balance/falls 2) Decreased B hip strength 3) Decreased activity tolerance) Occupational Therapy Problem List: Detail (1. Need to further assess showering/ dressing safety/Ind. 2. Decreased activity tolerance needed for safe and Ind ADLs/IADLs.) Goals - Goals Physical Therapy Goals: 1) Patient will stand with no support and minimal postural sway for 1 minute. 2) Patient will increase hip flexion muscle grade by 1/3 of a point. 3) Patient will tolerate ambulating 100' with a front wheeled walker and supervision for safety. 4) Evaluate patient using objective measure for balance. Occupational Therapy Goals: 1. Pt will be safe and Ind with showering. 2. Pt will be safe and Ind with total body dressing. 3. Pt will demonstrate improved tolerance for activity to allow Ind with ADLs/IADLs. Prognosis - Prognosis Good Plan - Plan Physical Therapy Plan: Patient will be seen 1 time/day M-F to work on balance activities, LE strengthening exercises, and improve tolerance to physical activity. Occupational Therapy Plan: OT 2-4 times per week to address goals and problem list as stated above. Thank you for this referral.
[2018-05-16] MEDS: CEPHALEXIN 500 MG CAPSULE PO SCH ×2 (13:44→20:01)
--- NOTE | 2018-05-16 15:10 | Discharge Summary ---
DATE: 05/16/2018 DISCHARGE DIAGNOSES: 1. Cellulitis bilaterally of her legs. 2. Weakness. 3. Frequent falls. 4. Degenerative joint disease of her low back with arthritis of her low back. 5. History of hypertension. 6. History of hypothyroidism. ATTENDING PHYSICIAN: Tristin Garcia DO REASON FOR HOSPITALIZATION: Bilateral redness of her legs, frequent falls and weakness. She had 5 falls in the last month. She came to the emergency department, evaluated by Dr. Evans, admitted to the hospital for cellulitis, edema of the lower extremities, frequent falls, and deconditioning. She was initially put under Ariane, the nurse practitioner, but I saw her on 05/14/2018 and took over her care at that point. Her legs were sore and red bilaterally up to about the mid calf area. Family expressed the desire for long-term placement. SIGNIFICANT FINDINGS: She had a head CT with no acute changes. Chest x-ray showed low lung volumes, no acute process found. She had an EKG done, sinus rhythm, ventricular premature complexes, right bundle-branch block, stable, no acute changes. Initially WBC 6400, hemoglobin 12.7, remained stable, hemoglobin dropped to 11.6 on 05/14/2018. PT/INR is in normal range. Her most recent electrolytes were BUN 27, creatinine 0.6, potassium 3.8. The brain natriuretic peptide is 147. Troponin T was normal. CK was 154. Liver enzymes are normal. TSH is 1.41. Urine is negative. THERAPY PROVIDED: The patient was started on 2 g of Kefzol q.8 h. Her legs got less red and less swollen and improved dramatically throughout the hospitalization. Switched over to oral Keflex 500 mg 4 times a day. HOSPITAL COURSE: Gradually improved. She had physical therapy, OT therapy, and she is walking with a walker but family feels she is not able to manage by herself at home and would like to have more rehab to get stronger and possible long-term placement. CONDITION ON DISCHARGE: Much improved. DISCHARGE INSTRUCTIONS: Follow up with Dr. Garcia after discharge from the long-term care facility or p.r.n. While she is in the care facility, I would recommend they follow up with the doctor who [facility]. Keflex 500 mg 4 times a day for 10 more days. Continue walking with a walker and with fall precautions. Medications on discharge include Tylenol p.r.n., levothyroxine 175 mcg daily, losartan 50 mg daily, Requip 1 mg at h.s., tramadol 100 mg 3 times a day p.r.n. pain for osteoarthritis of her back and joints, aspirin 325 daily, metoprolol tartrate 50 mg b.i.d., Voltaren gel to her knees t.i.d. p.r.n., Neurontin 300 mg q.8 h. and 600 mg at h.s. MTDD
[2018-05-16] MEDS: ROPINIROLE HCL 1 MG TABLET PO SCH (22:48)
[2018-05-17] MEDS: CEPHALEXIN 500 MG CAPSULE PO SCH ×2 (02:21→08:18)
[2018-05-17] MEDS: LEVOTHYROXINE SODIUM 175 MCG TABLET PO SCH (06:30)
[2018-05-17] MEDS: GABAPENTIN 300 MG CAPSULE PO SCH (06:30)
[2018-05-17] MEDS: ACETAMINOPHEN 325 MG TAB PO PRN (06:31)
[2018-05-17] MEDS: ASPIRIN 81 MG CHEWABLE TABLET PO SCH (10:06)
[2018-05-17] MEDS: METOPROLOL TART 50 MG TABLET PO SCH (10:06)
[2018-05-17] MEDS: ENOXAPARIN 40 MG/0.4 ML SYR SQ SCH (10:07)
== END 2018-05-17 10:05 | DRG 948 ==
LOC: ER 11:06 → MEDSURG 15:07
PROVIDERS: ADMIT Emergency Medicine; ATTEND Emergency Medicine
DX: R53.1 Weakness (principal); L03.116 Cellulitis of left lower limb; L03.115 Cellulitis of right lower limb; R60.9 Edema, unspecified; R29.6 Repeated falls; Z91.81 History of falling; I10 Essential (primary) hypertension; E78.00 Pure hypercholesterolemia, unspecified; E03.9 Hypothyroidism, unspecified; G62.9 Polyneuropathy, unspecified; N39.3 Stress incontinence (female) (male); M19.90 Unspecified osteoarthritis, unspecified site; Z96.651 Presence of right artificial knee joint
CPT/HCPCS: 85025; 85730; 85610; 80053; 81003; 84443; 84484; 83880; 71046; 70450; 93005; 93010; J0690; 82550; 96365; 99285; J1650